=== PATIENT | male | born 1995 | race Hispanic/Latino ===

== ENCOUNTER 2022-03-01 18:26 | Emergency (ER) | payer SELFPAY ==
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
[2022-03-01 19:11] LABS: Bilirubin,Urine NEG (Negative); Blood,Urine SM (Negative); Color,Urine Straw (Yellow); Protein,Urine <15 mg/dL mg/dL (Negative); Urobilinogen,Urine < 2.0 mg/dL (<2.0)
[2022-03-01 19:18] LABS: Amphetamine Screen,Urine Negative; Benzodiazepines Screen,Urine Negative; Cannabinoid Screen,Urine Negative; Cocaine Screen,Urine Negative; Methadone Screen,Urine Negative; Opiate Screen,Urine Negative
[2022-03-01 20:17] LABS: Basophils # (Auto) 0.1 K/mm3 (0.0-0.1); Basophils % (Auto) 1.9 % (0.0-1.8); Eosinophils % (Auto) 1.4 % (0.0-4.3); Hematocrit 44.6 % (35.5-45.6); Hemoglobin 14.8 gm/dl (11.8-15.2); Lymphocytes # (Auto) 0.8 K/mm3 (1.2-5.4); Lymphocytes % (Auto) 22.1 % (13.4-35.0); Mean Corpuscular HGB Conc 33 % (32-34); Mean Corpuscular Volume 99 fl (84-94); Monocytes # (Auto) 0.5 K/mm3 (0.0-0.8); Monocytes % (Auto) 13.3 % (0.0-7.3); Platelet Count 179 K/mm3 (140-440); Red Cell Distribution Width 12.5 % (13.2-15.2)
[2022-03-01 20:28] LABS: Alanine Aminotransferase 311 units/L (7-56); Albumin 5.2 g/dL (3.9-5); Blood Urea Nitrogen 5 mg/dL (9-20); Calcium 9.5 mg/dL (8.4-10.2); Hemolysis Index 3
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
[2022-03-01 20:36] LABS: BUN/Creatinine Ratio 8
[2022-03-02] MEDS ORDERED: SODIUM CHLORIDE 0.9% 1000 ML 1,000 ML IV ONE (02:51)
[2022-03-02] MEDS ORDERED: LACTATED RINGERS 1,000 ML IV ONE (02:52)
[2022-03-02] MEDS ORDERED: LORazepam 2 MG/ML VIAL IV ONE (09:16)
--- NOTE | 2022-03-02 11:08 | Event Note ---
Date: 03/02/22 Patient is medically cleared.
[2022-03-02 11:30] VITALS: BP 135/62
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
== END 2022-03-02 11:34 | disposition home or self-care (01) ==
LOC: ED 18:26
DX: F10.10 Alcohol abuse, uncomplicated (principal); R56.9 Unspecified convulsions; R25.1 Tremor, unspecified
CPT/HCPCS: 36415; 70450; 72125; 80053; 80307; 81001; 83735; 85025; 96361; 96374; 99285; J2060; 80320; G0480